=== PATIENT | male | born 1985 | race Caucasian/White ===

== ENCOUNTER 2023-07-30 18:06 | Emergency (ER) | payer SELFPAY ==
[2023-07-30 18:12] VITALS: BP 182/129
[2023-07-30 18:40] VITALS: BMI 33.7
--- NOTE | 2023-07-30 23:28 | ED.MUSCINJ ---
HPI-Injury
General
Chief Complaint: Musculo-Skeletal Complaint
Source: patient
Exam Limitations: none
Time Seen by Provider: 07/30/23 18:19
Nursing documentation reviewed up to this point in time: agreed with
Travel History
Have you had any contact with someone who has COVID-19?: No
Do you have any symptoms of coronavirus? Fever > 100 degrees, chills, cough, shortness of breath, sore throat, loss of taste or smell, muscle aches, or headache?: No
History of Present Illness-Injury
Is this injury a work related problem?: No
Is pt an associate of [facility]?: No
Initial Injury comments:
Patient to ED for eval of right wrist injury after falling off AT[employer]. Injury occurred today. He was seen by , had xrays, was splinted, and then sent to ED for possible closed reduction and ortho referral.
Past History
Past History
ED Past Medical History: Other (Kidney stones); Negative Asthma, HTN, Hypercholesterolemia or NIDDM
ED Past Surgical History: Appendectomy
Social History
Tobacco: Non-smoker
Alcohol: None
Drug: None
Personal: Single
Employment: Employed
Musculoskeletal Injury Exam
Musculoskeletal Injury Exam
Right Wrist:
Pain with Movement?: Moderate
Tender to palpation?: Moderate
Soft tissue swelling?: Moderate
External deformity and angulation?: None
Joint effusion?: None
Contusion?: None
Hematoma-local bleeding into tissue?: None
Strain- Sprain- Tear (Connective tissue injury)?: Moderate
Crepitus with movement?: No
Joint instability?: No
Malalignment/deformity?: No
Range of motion: Limited
Distal skin color and temperature: normal-warm & good color
Capillary Refill: normal
Normal distal neurovascular exam?: Yes
Peripheral Pulses: radial (right): 3+
Phy Exam
General Physical Exam
General Presentation: well appearing and no apparent distress
General age: appears stated age
General Skin: warm and dry
General Habitus: normal
General Mental: alert
Musculoskeletal Exam
Musculoskeletal Exam: neuro vasc intact
Skin Exam
Skin Exam: normal color, warm/dry and no rash
Psychiatric Exam
Psychiatric Exam: normal mood/affect
Injury Course
Orders/Labs/Results
Orders:
Orders
07/30/23 20:01
Upper Ext Right wo Contrast CT [CT Upper Ext W/o Iv Cont Rt] Urgent
Comment:
Reason For Exam: attn right wrist, request by ortho
07/30/23 20:25
Oxycodone/Acetaminophen [Percocet 5/325] 1 tablet PO NOW STA
07/30/23 21:23
Sling Right-Treatment ONCE
[place] Right-Treatment ONCE
Procedures
Joint/Fracture Reduction
Right Wrist:
Indication for procedure:: displaced distal radius fx
Anesthesia/sedation: 1% Lidocaine (hematoma block)
Injury was: closed
Further treatement: needs further treatment
Post reduction exam: stable
Capillary Refill: normal
Normal distal neurovascular exam?: Yes
Peripheral Pulses: radial (right): 3+
*Critical Care Note
Total Time (30-74mins, 75-104mins- exclusive of procedures): Not Applicable
Update Note
Update Note:
[facility] xray reviewed. Sent to Dr. Aguayo for eval. Recommends attempting mild reduction of joint and splinting. He will followup with patient in the office in AM to schedule surgery. He also requested CT of joint which was completed prior to patient
discharge.
ED Attending Note
-
Portions of this chart may have been created with voice recognition software.� Occasional wrong word or��sound alike� substitutions may have occurred due to the inherent limitations of voice recognition software.
Discharge Plan
Departure
Patient Disposition: Home (Routine Discharge)
Date of Disposition: 07/30/23
Time of Disposition: 21:23
Patient with high blood pressure during this ER visit?: No
Discharge Problem:
Fracture of wrist
Instructions: Wrist Fracture (DC), Ibuprofen, How to Use a Shoulder Sling, Using Cold for Pain
Prescriptions:
New
hydrocodone-acetaminophen 5-325 mg tablet
1 tab PO Q4H PRN (Reason: Pain) Qty: 10 0RF
No Action
hydrocodone-acetaminophen [[place]] 1 EACH tablet
1 ea PO Q4HPRN PRN (Reason: pain) Qty: 12 0RF
cefdinir 300 MG capsule
300 mg PO BID Qty: 10 0RF
phenazopyridine 200 MG tablet
200 mg PO TIDPRN PRN (Reason: bladder irritation) Qty: 20 1RF
ketorolac 10 MG tablet
10 mg PO Q6HPRN PRN (Reason: pain) Qty: 20 0RF
tamsulosin 0.4 MG capsule
0.4 mg PO DAILY Qty: 10 0RF
oxycodone 5 MG tablet
5 mg PO Q6H PRN (Reason: pain) Qty: 14 0RF
tamsulosin 0.4 MG capsule
0.4 mg PO DAILY Qty: 5 0RF
Referrals:
Mehreen Bull DO [Family Provider] -
Shakir Aguayo MD [Active] - Tomorrow (Call the office in the AM for your appointment time.)
Interventions
Interventions:
*Risk Screen - Suicide Last Done: 07/30/23 18:12
*General Assessment Last Done: 07/30/23 18:12
*Neglect/Abuse Screening Last Done: 07/30/23 18:12
ED- Fall Risk Assessment Last Done: 07/30/23 18:41
*ED COVID-19 Vaccine History Last Done: 07/30/23 18:40
*Nursing Disposition Last Done: 07/30/23 22:18
ED-Musculoskeletal Assessment Last Done: 07/30/23 18:41
Discharge Date and Time
Discharge Date/Time: 07/30/23 22:18
== END 2023-07-30 22:18 | disposition home or self-care (01) ==
LOC: EMR 18:06
PROVIDERS: EMERGENCY PHYSICIAN Emergency Medicine; FAMILY PHYSICIAN Internal Medicine
DX: S52.501A Unspecified fracture of the lower end of right radius, initial encounter for closed fracture (principal); V86.95XA Unspecified occupant of 3- or 4- wheeled all-terrain vehicle (ATV) injured in nontraffic accident, initial encounter; Z87.442 Personal history of urinary calculi
CPT/HCPCS: 25605; 99284; 73200

== ENCOUNTER → 2023-08-02 06:30 | Day surgery (SDC) | payer SELFPAY ==
[2023-08-02] VITALS (14 sets, daily range): BP systolic 132–173; BP diastolic 82–117; BMI 33.4
[2023-08-02] MEDS: TYLENOL 1000 MG PO (13:09)
[2023-08-02] MEDS: CELEBREX 200 MG PO (13:09)
[2023-08-02] MEDS: NORMOSOL-R 1000 IV (13:09)
[2023-08-02] MEDS: ZOFRAN 4 MG IV (20:38)
== END | disposition home or self-care (01) ==
LOC: SDS 06:30
PROVIDERS: ATTENDING PHYSICIAN Orthopaedic Surgery Hand Surgery
DX: S52.571A Other intraarticular fracture of lower end of right radius, initial encounter for closed fracture (principal); V86.55XA Driver of 3- or 4- wheeled all-terrain vehicle (ATV) injured in nontraffic accident, initial encounter
CPT/HCPCS: 25609; C1713